=== PATIENT | female | born 1955 | race Caucasian/White ===

== ENCOUNTER 2018-05-30 21:36 | Emergency (ER) | payer MEDICAID, OTHER ==
[~2018-05-30] VITALS: Ht 157.5 cm; Wt 90.0 kg
[2018-05-30] MEDS ORDERED: ALBUTEROL/IPRATROPIUM 2.5MG/0.5MG, 3 ML NPPB ONE (22:00)
--- NOTE | 2018-05-30 22:17 | NUR ---
PT HERE FOR COUGH, CONGESTION AND SORE THROAT SINCE SUNDAY. VSS. PT REFUSING FULL DOSE OF PREDNISONE DUE TO SIDE EFFECTS. PT TO XRAY
--- NOTE | 2018-05-30 22:35 | NUR ---
RT AT BEDSIDE. O2 SATS IMPROVED TO 93 AFTER NEBULIZER TREATMENT
[2018-05-30 23:00] VITALS: BP 134/78
--- NOTE | 2018-05-30 23:01 | NUR ---
Patient given discharge instructions and they have confirmed that they understand the instructions. Patient ambulatory with steady gait.
== END 2018-05-30 23:03 | disposition home or self-care (01) ==
LOC: ED 22:45
DX: J45.41 Moderate persistent asthma with (acute) exacerbation (principal); M79.18 Myalgia, other site; R53.83 Other fatigue; Z87.891 Personal history of nicotine dependence; Z86.19 Personal history of other infectious and parasitic diseases
CPT/HCPCS: 71046; 94640; 99283; J7512; J7620

== ENCOUNTER 2018-07-21 07:44 | Emergency (ER) | payer OTHER ==
[~2018-07-21] VITALS: Ht 154.9 cm; Wt 89.3 kg
[2018-07-21 07:48] VITALS: BP 154/90
--- NOTE | 2018-07-21 08:07 | NUR ---
Pt presents to ED with c/o right ear pressure and pain, nasal congestion, and upper respiratory symptoms for "days". Pt resting on gurney connected to NIBP, continous pulse ox, and cardiac monitors. NADN. Call light within reach. Pt has unlabored shallow respirations with even chest rise and fall. cardiac cath technologist at bedside to irrigate right ear.
--- NOTE | 2018-07-21 08:58 | NUR ---
Pt able to hear out of R ear. Patient given discharge instructions and they have confirmed that they understand the instructions. Patient ambulatory with steady gait.
== END 2018-07-21 09:00 | disposition home or self-care (01) ==
LOC: ED 08:40
DX: H61.21 Impacted cerumen, right ear (principal); J45.909 Unspecified asthma, uncomplicated; Z86.19 Personal history of other infectious and parasitic diseases; Z87.891 Personal history of nicotine dependence; Z88.5 Allergy status to narcotic agent
CPT/HCPCS: 69209; 99282

== ENCOUNTER 2018-08-03 07:52 | Emergency (ER) | payer OTHER ==
[~2018-08-03] VITALS: Ht 154.9 cm; Wt 88.9 kg
--- NOTE | 2018-08-03 08:18 | NUR ---
FIRST CONTACT WITH PT: Pt resting on suresh. NADN. No obvious defecits observed. Pt states, "I have had nausea, vomiting, and diarrhea for a few days." Pt denies blood in emesis or stool. Pt denies cp, sob, trauma. Pt denies syncope. Pt connected to NIBP and continous pulse ox. Pt has steady gait and balance. Pt is AOX4, unlabored respirations with even chest rise and fall, and skin is pink, warm, and dry. Bed rail up for safety measure. Call light within reach.
[2018-08-03] MEDS ORDERED: ALBU6.7H INH (08:26)
[2018-08-03] MEDS ORDERED: ALBU2.5V INH (08:26)
[2018-08-03 08:28] VITALS: BP 159/95
[2018-08-03] MEDS ORDERED: [UNRECOGNIZED DRUG - OTHER] (08:28)
[2018-08-03] MEDS ORDERED: ONDANSETRON ODT 4 MG PO ONE (08:30)
--- NOTE | 2018-08-03 08:36 | NUR ---
Provided pt water per request. Pt requesting to toilet. Provided pt UA cup. Pt stated verbal understanding and teach back of how to do a clean catch urine sample. Pt ambulates with steady gait and balance.
[2018-08-03] MEDS ORDERED: ONDANSETRON ODT 4 MG ONE (08:42)
[2018-08-03 08:44] LABS: BASOPHILS # (AUTO) 0.02 x10^3/uL (0-0.1); BASOPHILS % (AUTO) 0 % (0-1); EOSINOPHILS # (AUTO) 0.16 x10^3/uL (0-0.4); EOSINOPHILS % (AUTO) 2 % (1-7); LYMPHOCYTES # (AUTO) 2.46 x10^3/uL (1-3.4); LYMPHOCYTES % (AUTO) 36 % (22-44); MD NO; MEAN CORPUSCULAR HEMOGLOBIN 30.4 pg (27.0-34.8); MEAN CORPUSCULAR HGB CONC 32.4 g/dL (32.4-35.8); MEAN CORPUSCULAR VOLUME 93.8 fL (80-100); MEAN PLATELET VOLUME 8.2 fL (7.4-10.4); MONOCYTES # (AUTO) 0.42 x10^3/uL (0.2-0.8); MONOCYTES % (AUTO) 6 % (2-9); NEUTROPHILS # (AUTO) 3.75 x10^3/uL (1.8-6.8); NEUTROPHILS % (AUTO) 55 % (42-75); PLATELET COUNT 314 x10^3/uL (130-400); RED CELL DISTRIBUTION WIDTH 13.9 % (9.6-15.2)
--- NOTE | 2018-08-03 08:46 | NUR ---
Provided pt medication per EMAR. Pt appreciative. Pt provided urine sample. Sending urine sample to lab.
[2018-08-03 08:51] LABS: ALANINE AMINOTRANSFERASE 55 U/L (12-78); ALBUMIN 3.6 g/dL (3.4-5.0); ANION GAP 5 mmol/L (5-15); CALCIUM 8.7 mg/dL (8.5-10.1); CHLORIDE 105 mmol/L (98-107)
[2018-08-03 08:53] LABS: ALKALINE PHOSPHATASE 71 U/L (45-117); BILIRUBIN,TOTAL 0.4 mg/dL (0.2-1.0); TOTAL PROTEIN 7.3 g/dL (6.4-8.2)
[2018-08-03 09:13] LABS: MICROSCOPIC NOT IND
[2018-08-03 09:20] LABS: CULTURE INDICATED? NO
--- NOTE | 2018-08-03 10:23 | NUR ---
Pt states, "I am feeling much better now." Patientgiven discharge instructions and they have confirmed that they understand the instructions. Patient ambulatory with steady gait. Pt left with d/c paperwork, work note, prescription, and all personal belongings.
== END 2018-08-03 10:23 | disposition home or self-care (01) ==
LOC: ED 08:09
DX: K52.9 Noninfective gastroenteritis and colitis, unspecified (principal); J45.909 Unspecified asthma, uncomplicated; Z86.19 Personal history of other infectious and parasitic diseases
CPT/HCPCS: 36415; 80053; 81003; 85025; 99283; Q0162

== ENCOUNTER 2018-09-01 08:05 | Emergency (ER) | payer OTHER ==
[~2018-09-01] VITALS: Ht 157.5 cm; Wt 89.4 kg
[~2018-09-01 08:05] MED LIST: ALBU2.5V INH; ALBU6.7H INH; [UNRECOGNIZED DRUG - OTHER]
[2018-09-01] MEDS ORDERED: FLUT9.9S NAS (08:31)
[2018-09-01] MEDS ORDERED: LORA10TA72 PO (08:31)
--- NOTE | 2018-09-01 08:33 | NUR ---
Pt ambulates from lobby to triage with steady gait and balance. Pt c/o nausea and epigastric, RUQ, RLQ, and periumbillical pain. NADN. No emesis observed. Pt denies diarrhea at this time. Pt denies cp, sob, trauma, or syncope. Pt resting on gurney connected to NIBP cuff, continous pulse ox, and front end web developer. Call light within reach. No needs expressed at this time.
[2018-09-01 08:52] LABS: BASOPHILS # (AUTO) 0.03 x10^3/uL (0-0.1); BASOPHILS % (AUTO) 0 % (0-1); EOSINOPHILS # (AUTO) 0.13 x10^3/uL (0-0.4); EOSINOPHILS % (AUTO) 2 % (1-7); LYMPHOCYTES # (AUTO) 2.66 x10^3/uL (1-3.4); LYMPHOCYTES % (AUTO) 38 % (22-44); MD NO; MEAN CORPUSCULAR HEMOGLOBIN 31.3 pg (27.0-34.8); MEAN CORPUSCULAR HGB CONC 33.4 g/dL (32.4-35.8); MEAN CORPUSCULAR VOLUME 93.8 fL (80-100); MEAN PLATELET VOLUME 8.1 fL (7.4-10.4); MONOCYTES # (AUTO) 0.42 x10^3/uL (0.2-0.8); MONOCYTES % (AUTO) 6 % (2-9); NEUTROPHILS # (AUTO) 3.76 x10^3/uL (1.8-6.8); NEUTROPHILS % (AUTO) 54 % (42-75); PLATELET COUNT 316 x10^3/uL (130-400); RED BLOOD COUNT 5.25 x10^6/uL (3.82-5.3); RED CELL DISTRIBUTION WIDTH 14.4 % (9.6-15.2)
[2018-09-01 09:06] LABS: ALANINE AMINOTRANSFERASE 58 U/L (12-78); ALBUMIN 3.6 g/dL (3.4-5.0); ANION GAP 7 mmol/L (5-15); CALCIUM 8.8 mg/dL (8.5-10.1); CHLORIDE 110 mmol/L (98-107); CREATININE 0.83 mg/dL (0.55-1.02)
[2018-09-01 09:08] LABS: ACETONE, SERUM Trace (10mg/dL) mg/dL (Negative)
[2018-09-01 09:10] LABS: ALKALINE PHOSPHATASE 73 U/L (45-117); BILIRUBIN,TOTAL 0.4 mg/dL (0.2-1.0); TOTAL PROTEIN 7.8 g/dL (6.4-8.2)
[2018-09-01 09:10] LABS: MICROSCOPIC NOT IND
[2018-09-01 09:14] LABS: CULTURE INDICATED? NO
--- NOTE | 2018-09-01 10:09 | NUR ---
Patient given discharge instructions and they have confirmed that they understand the instructions. Patient ambulatory with steady gait. Pt left with all personal belongings, dc paperwork, and RX. Pt encouraged to return to ED if symptoms worsen or conditions change.
[2018-09-01 10:10] VITALS: BP 126/74
== END 2018-09-01 10:12 | disposition home or self-care (01) ==
LOC: ED 09:23
DX: R11.0 Nausea (principal); R19.7 Diarrhea, unspecified; R42 Dizziness and giddiness; R10.84 Generalized abdominal pain; J45.909 Unspecified asthma, uncomplicated; Z86.19 Personal history of other infectious and parasitic diseases; Z87.891 Personal history of nicotine dependence; Z90.710 Acquired absence of both cervix and uterus
CPT/HCPCS: 36415; 80053; 81003; 82010; 83605; 83690; 83880; 85025; 99283

== ENCOUNTER 2018-09-22 07:28 | Emergency (ER) | payer OTHER ==
[~2018-09-22] VITALS: Ht 157.5 cm; Wt 90.1 kg
[~2018-09-22 07:28] MED LIST changes: +FLUT9.9S NAS; +LORA10TA72 PO
[2018-09-22 07:41] VITALS: BP 160/118
--- NOTE | 2018-09-22 08:58 | NUR ---
BOAT CARPENTER: PT TO ROOM FROM LOBBY
== END 2018-09-22 09:32 | disposition home or self-care (01) ==
LOC: ED 09:05
DX: R11.2 Nausea with vomiting, unspecified (principal); R19.7 Diarrhea, unspecified; R10.9 Unspecified abdominal pain; J45.909 Unspecified asthma, uncomplicated; Z86.19 Personal history of other infectious and parasitic diseases; Z90.710 Acquired absence of both cervix and uterus
CPT/HCPCS: 93005; 99283

== ENCOUNTER 2019-03-22 10:08 | Inpatient (IN) | payer MEDICAID, OTHER ==
[~2019-03-22] VITALS: Ht 157.5 cm; Wt 83.0 kg
[~2019-03-22 10:08] MED LIST changes: -ALBU6.7H INH; +ALBU6.7H8 INH
[2019-03-22] MEDS ORDERED: methylPREDNISolone SOD SUCC 125 MG/2 ML IV ONE (10:30)
[2019-03-22] MEDS ORDERED: SODIUM CHLORIDE FLUSH 10ML SYR IVF ONE (10:30)
[2019-03-22] MEDS ORDERED: PLEASE ENTER HEIGHT AND WEIGHT MC SCH (10:30)
[2019-03-22] MEDS ORDERED: methylPREDNISolone SOD SUCC 125 MG/2 ML ONE (10:41)
[2019-03-22 10:58] LABS: BASOPHILS # (AUTO) 0.02 x10^3/uL (0-0.1); BASOPHILS % (AUTO) 0 % (0-1); EOSINOPHILS # (AUTO) 0.03 x10^3/uL (0-0.4); EOSINOPHILS % (AUTO) 0 % (1-7); LYMPHOCYTES # (AUTO) 2.01 x10^3/uL (1-3.4); LYMPHOCYTES % (AUTO) 16 % (22-44); MD NO; MEAN CORPUSCULAR HEMOGLOBIN 31.2 pg (27.0-34.8); MEAN CORPUSCULAR HGB CONC 32.9 g/dL (32.4-35.8); MEAN CORPUSCULAR VOLUME 94.7 fL (80-100); MONOCYTES # (AUTO) 0.69 x10^3/uL (0.2-0.8); MONOCYTES % (AUTO) 5 % (2-9); NEUTROPHILS # (AUTO) 10.07 x10^3/uL (1.8-6.8); NEUTROPHILS % (AUTO) 79 % (42-75); PLATELET COUNT 231 x10^3/uL (130-400); RED BLOOD COUNT 4.56 x10^6/uL (3.82-5.3); RED CELL DISTRIBUTION WIDTH 14.6 % (9.6-15.2)
[2019-03-22 11:06] LABS: ALBUMIN 3.1 g/dL (3.4-5.0); ANION GAP 7 mmol/L (5-15); CALCIUM 8.4 mg/dL (8.5-10.1); CHLORIDE 104 mmol/L (98-107); CREATININE 0.74 mg/dL (0.55-1.02)
--- NOTE | 2019-03-22 11:15 | NUR ---
RESTING WITH EYES CLOSED.
[2019-03-22] MEDS ORDERED: AZITHROMYCIN 500 MG in SODIUM CHLORIDE 0.9% 250 ML IV ONE (11:30)
[2019-03-22] MEDS ORDERED: SODIUM CHLORIDE 0.9%, 500ML IVBOLUS ONE (11:30)
[2019-03-22] MEDS ORDERED: ALBUTEROL/IPRATROPIUM 2.5MG/0.5MG, 3 ML NPPB ONE (11:30)
[2019-03-22] MEDS ORDERED: CEFTRIAXONE PMX 1GM/50ML 50 ML IV ONE (11:30)
--- NOTE | 2019-03-22 11:30 | NUR ---
Does PT have IV for CT, Chest With?
[2019-03-22] MEDS ORDERED: ALBUTEROL/IPRATROPIUM 2.5MG/0.5MG, 3 ML ONE (11:40)
--- NOTE | 2019-03-22 11:49 | NUR ---
AFTER RECEIVING BREATHING TX PT TO CT.
--- NOTE | 2019-03-22 11:57 | NUR ---
REPORT TO VALERY NARANJO
[2019-03-22] MEDS ORDERED: OMNIPAQUE 350 MG/ML, 75ML BOTTLE ONE (12:04)
[2019-03-22] MEDS ORDERED: CEFTRIAXONE PMX 1GM/50ML 50 ML ONE (12:05)
--- NOTE | 2019-03-22 12:14 | NUR ---
PT BACK FROM CT. IV ABX STARTED PER MAY. 2 SET BLOOD CX ALREADY COLLECTED.
--- NOTE | 2019-03-22 12:27 | NUR ---
ADMIT ORDERS RECEIVED. AWAITING BED ASSIGNMENT.
[2019-03-22] MEDS ORDERED: ONDANSETRON 2MG/ML, 2ML IVPush PRN (13:00)
[2019-03-22] MEDS ORDERED: ASA/APAP/ CAFFEINE TABLET PO PRN (13:00)
[2019-03-22] MEDS ORDERED: ONDANSETRON ODT 4 MG PO PRN (13:00)
[2019-03-22] MEDS ORDERED: hydrALAzine 20 MG/ML, 1ML IVPush PRN (13:00)
[2019-03-22] MEDS ORDERED: TRAZODONE 50MG TABLET PO PRN (13:00)
[2019-03-22] MEDS ORDERED: POTASSIUM CHLORIDE 20 MEQ in LACTATED RINGERS 1,000 ML IV ONE (13:00)
[2019-03-22] MEDS ORDERED: GUAIFENESIN/DM 200-20MG, 10ML UDC PO PRN (13:00)
[2019-03-22] MEDS ORDERED: BUTALB/APAP/CAFFEINE 50MG/325MG/40MG PO PRN (13:00)
[2019-03-22] MEDS ORDERED: POLYETHYLENE GLYCOL 17 GM PACKET PO PRN (13:00)
--- NOTE | 2019-03-22 13:00 | NUR ---
DIET TRAY DELIVERED TO PT.
--- NOTE | 2019-03-22 13:24 | NUR ---
REPORT GIVEN TO NENA NARANJO
[2019-03-22 14:51] VITALS: BP 109/72
[2019-03-22 15:27] VITALS: BP 109/72
[2019-03-22 19:47] VITALS: BP 142/84
[2019-03-22] MEDS: ALBUTEROL/IPRATROPIUM 2.5MG/0.5MG, 3 ML NPPB PRN (20:50)
[2019-03-22] MEDS: CEFTRIAXONE PMX 1GM/50ML 50 ML IV SCH (21:59)
[2019-03-22] MEDS: LACTULOSE 10 GM/15 ML UDC PO SCH (21:59)
[2019-03-23] MEDS: ALBUTEROL/IPRATROPIUM 2.5MG/0.5MG, 3 ML NPPB PRN ×4 (00:38→20:54)
[2019-03-23 01:58] VITALS: BP 125/79
[2019-03-23 05:58] LABS: BASOPHILS # (AUTO) 0.03 x10^3/uL (0-0.1); BASOPHILS % (AUTO) 0 % (0-1); EOSINOPHILS % (AUTO) 0 % (1-7); LYMPHOCYTES # (AUTO) 1.76 x10^3/uL (1-3.4); LYMPHOCYTES % (AUTO) 15 % (22-44); MD NO; MEAN CORPUSCULAR HEMOGLOBIN 30.7 pg (27.0-34.8); MEAN CORPUSCULAR HGB CONC 32.4 g/dL (32.4-35.8); MEAN CORPUSCULAR VOLUME 94.8 fL (80-100); MEAN PLATELET VOLUME 9.7 fL (7.4-10.4); MONOCYTES # (AUTO) 0.75 x10^3/uL (0.2-0.8); MONOCYTES % (AUTO) 6 % (2-9); NEUTROPHILS # (AUTO) 9.06 x10^3/uL (1.8-6.8); NEUTROPHILS % (AUTO) 78 % (42-75); PLATELET COUNT 224 x10^3/uL (130-400); RED BLOOD COUNT 4.15 x10^6/uL (3.82-5.3); RED CELL DISTRIBUTION WIDTH 14.3 % (9.6-15.2)
[2019-03-23 06:06] LABS: CHLORIDE 109 mmol/L (98-107)
[2019-03-23 06:11] LABS: ALBUMIN 2.5 g/dL (3.4-5.0); ANION GAP 5 mmol/L (5-15); CALCIUM 8.2 mg/dL (8.5-10.1); CREATININE 0.64 mg/dL (0.55-1.02)
[2019-03-23 07:47] VITALS: BP 161/82
[2019-03-23] MEDS ORDERED: CALCIUM GLUCONATE 4.6 MEQ in SODIUM CHLORIDE 0.9% 50 ML IV ONE (08:30)
[2019-03-23] MEDS: LACTULOSE 10 GM/15 ML UDC PO SCH ×2 (08:43→20:43)
[2019-03-23] MEDS: CEFTRIAXONE PMX 1GM/50ML 50 ML IV SCH ×2 (08:44→20:43)
[2019-03-23] MEDS: AZITHROMYCIN 500 MG in SODIUM CHLORIDE 0.9% 250 ML IV SCH (09:45)
[2019-03-23 14:17] VITALS: BP 136/83
[2019-03-23] MEDS: ACETAMINOPHEN 325 MG TABLET PO PRN (18:40)
[2019-03-23 18:58] VITALS: BP 118/87
[2019-03-24] MEDS: ACETAMINOPHEN 325 MG TABLET PO PRN (01:14)
[2019-03-24] MEDS: ALBUTEROL/IPRATROPIUM 2.5MG/0.5MG, 3 ML NPPB PRN ×2 (01:22→10:20)
[2019-03-24 01:40] VITALS: BP 130/72
[2019-03-24 07:36] VITALS: BP 149/91
[2019-03-24] MEDS: CEFTRIAXONE PMX 1GM/50ML 50 ML IV SCH (08:25)
[2019-03-24] MEDS: LACTULOSE 10 GM/15 ML UDC PO SCH (08:25)
[2019-03-24] MEDS ORDERED: ALBU90AE IH (10:06)
[2019-03-24] MEDS ORDERED: CEFD300C37 PO (10:06)
[2019-03-24] MEDS ORDERED: AZIT250T PO (10:06)
[2019-03-24] MEDS: AZITHROMYCIN 500 MG in SODIUM CHLORIDE 0.9% 250 ML IV SCH (10:14)
[2019-03-24] MEDS ORDERED: PRED20TA PO (10:20)
[2019-03-24 12:13] VITALS: BP 148/84
== END 2019-03-24 13:10 | disposition home or self-care (01) | DRG 871 ==
LOC: ED 10:27 → EDIP 12:20 → 3N 13:42 → DCLOUNGE 03-24 12:59
PROVIDERS: ADMIT Hospitalist; ATTEND Family Medicine
DX: A41.9 Sepsis, unspecified organism (principal); J18.9 Pneumonia, unspecified organism; J96.01 Acute respiratory failure with hypoxia; E46 Unspecified protein-calorie malnutrition; J47.0 Bronchiectasis with acute lower respiratory infection; K86.1 Other chronic pancreatitis; B18.2 Chronic viral hepatitis C; Z68.33 Body mass index [BMI] 33.0-33.9, adult; E83.51 Hypocalcemia; J45.909 Unspecified asthma, uncomplicated; Z59.0 Homelessness; Z87.891 Personal history of nicotine dependence; Z90.710 Acquired absence of both cervix and uterus; R16.0 Hepatomegaly, not elsewhere classified
CPT/HCPCS: 36415; 84145; J7620; 71045; 71260; 80048; 80069; 82040; 83605; 83735; 85025; 87040; 93005; 94640; 96361; 96374; 99291; G0378; J0456; J0610; J0696; J3480; Q9967; J2930; J7040; J7050; J7120

== ENCOUNTER 2020-10-29 13:11 | Emergency (ER) | payer MEDICAID, MEDICARE ==
[~2020-10-29] VITALS: Ht 157.5 cm; Wt 41.6 kg
[~2020-10-29 13:11] MED LIST changes: +ALBU90AE IH; +AZIT250T PO; +CEFD300C37 PO; +PRED20TA PO
[2020-10-29 13:35] VITALS: BP 137/83
--- NOTE | 2020-10-29 13:41 | NUR ---
EKG DONE IN TRIAGE.
[2020-10-29 14:06] LABS: BASOPHILS % (AUTO) 0 % (0-1); EOSINOPHILS % (AUTO) 0 % (1-7); LYMPHOCYTES % (AUTO) 23 % (22-44); MEAN CORPUSCULAR HEMOGLOBIN 32.8 pg (27.0-34.8); MEAN CORPUSCULAR HGB CONC 33.1 g/dL (32.4-35.8); MEAN PLATELET VOLUME 8.8 fL (7.4-10.4); MONOCYTES % (AUTO) 6 % (2-9); NEUTROPHILS % (AUTO) 71 % (42-75); PLATELET COUNT 234 x10^3/uL (130-400); RED BLOOD COUNT 4.15 x10^6/uL (3.82-5.3); RED CELL DISTRIBUTION WIDTH 13.8 % (9.6-15.2)
--- NOTE | 2020-10-29 14:23 | NUR ---
BOOT LINER MAKER: PT TO ROOM FROM [facility]
[2020-10-29 14:25] LABS: ANION GAP 5 mmol/L (5-15); CHLORIDE 105 mmol/L (98-107)
[2020-10-29 14:26] LABS: ALANINE AMINOTRANSFERASE 33 U/L (12-78); ALBUMIN 3.8 g/dL (3.4-5.0); ALKALINE PHOSPHATASE 58 U/L (45-117); BILIRUBIN,TOTAL 0.4 mg/dL (0.2-1.0); CALCIUM 9.1 mg/dL (8.5-10.1); CREATININE 0.91 mg/dL (0.55-1.02); TOTAL PROTEIN 7.4 g/dL (6.4-8.2)
[2020-10-29 14:27] LABS: TROPONIN I < 0.015 ng/mL (0.000-0.045)
--- NOTE | 2020-10-29 15:15 | NUR ---
PT SMOKING IN BATHROOM. PT INFORMED THE HOSPITAL IS A SMOKE FREE ZONE. PT REFUSED TO STAY. PT GIVEN HER DISCHARGE INSTRUCTIONS BUT DID NOT STAY FOR HER INHALER OR DISCHARGE VS. DR GONZALEZ AWARE, PT WAS GIVEN A PRESCRIPTION FOR A INHALER. PT LEFT.
[2020-10-29] MEDS ORDERED: ALBUTEROL HFA 90 MCG/SPRAY INH ONE (15:30)
== END 2020-10-29 15:20 | disposition home or self-care (01) ==
LOC: ED 13:30
DX: J45.41 Moderate persistent asthma with (acute) exacerbation (principal); Z90.89 Acquired absence of other organs; Z90.710 Acquired absence of both cervix and uterus
CPT/HCPCS: 36415; 71045; 80053; 84484; 85025; 93005; 99285; J7512